=== PATIENT | female | born 1990 | race Caucasian/White ===

== ENCOUNTER 2017-02-23 19:33 | Emergency (ER) | payer MEDICAID, OTHER ==
[2017-02-23 19:52] VITALS: BP 125/92
--- NOTE | 2017-02-23 20:42 | EDM.PDOC ---
ED HPI GENERAL MEDICAL PROBLEM - General Chief Complaint: Back Pain or Injury Stated Complaint: BACK PAIN Time Seen by Provider: 02/23/17 20:04 Source of Information: Reports: Patient, RN Notes Reviewed History Limitations: Reports: No Limitations - History of Present Illness INITIAL COMMENTS - FREE TEXT/NARRATIVE: The patient states that she is 12 weeks . She states that she developed low back pain night before last (02/21/2017), then dysuria and urinary urgency last night. She developed nausea and emesis around 15:00 this afternoon. The patient denies fever and chills. No recent vaginal bleeding or spotting. She states that she called the office of her Computer Assembler , Dr. Gaming, yesterday, and states that she was told to see what happens. No prescriptions were ordered. The patient states that she has had similar symptoms in the past when she had UTIs. The patient is Ab1. Her LMP was 11/28/2016 (12 weeks 4 days by dates). The patient does not have a PCP. Lower Back Pain Score (Numeric/FACES): 7 - Related Data Allergies Allergy/AdvReac Type Severity Reaction Status Date / Time amoxicillin trihydrate Allergy Hives Verified 04/28/15 09:57 FINISH CARPENTER [From Augmentin] ciprofloxacin [From Cipro] Allergy Abdominal Verified 04/28/15 09:57 FINISH CARPENTER Pain ciprofloxacin HCl Allergy Abdominal Verified 04/28/15 09:57 FINISH CARPENTER [From Cipro] Pain doxycycline Allergy Rash Verified 04/28/15 09:57 FINISH CARPENTER potassium clavulanate Allergy Hives Verified 04/28/15 09:57 FINISH CARPENTER [From Augmentin] Home Meds: Home Meds Levonorgestrel [Mirena] 1 each IY DAILY 04/28/15 [History] Past Medical History Gastrointestinal History: Reports: Inflammatory Bowel Disease (Crohn disease) 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: : 3 Para: 1 - Past Surgical History HEENT Surgical History: Reports: Adenoidectomy, Tonsillectomy GI Surgical History: Reports: Colonoscopy, EGD Female Surgical History: Reports: Section (x 1), D&C (x 1) Social & Family History - Family History Family Medical History: Noncontributory - Tobacco Use Smoking Status *Q: Former Smoker Years of Tobacco use: 4 Packs/Tins Daily: 0.5 Month Tobacco Last Used: Quit December 2016 - Caffeine Use Caffeine Use: Reports: Coffee - Alcohol Use Alcohol Use History: No Days Per Week of Alcohol Use: 0 - Recreational Drug Use Recreational Drug Use: No - Living Situation & Occupation Living situation: Reports: Single, with Significant Other, with Family (daughter ) 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) ED ROS GENERAL - Review of Systems Review Of Systems: See Below Constitutional: Reports: No Symptoms HEENT: Reports: No Symptoms Respiratory: Reports: No Symptoms Cardiovascular: Reports: No Symptoms Endocrine: Reports: No Symptoms GI/Abdominal: Reports: No Symptoms : Reports: No Symptoms Musculoskeletal: Reports: No Symptoms Skin: Reports: No Symptoms Neurological: Reports: No Symptoms Psychiatric: Reports: No Symptoms Hematologic/Lymphatic: Reports: No Symptoms Immunologic: Reports: No Symptoms ED EXAM, GENERAL - Physical Exam Exam: See Below Exam Limited By: No Limitations General Appearance: Alert, WD/WN, No Apparent Distress Eye Exam: Bilateral Eye: Normal Inspection Ears: Normal External Exam, Hearing Grossly Normal Nose: Normal Inspection, No Blood Throat/Mouth: Normal Inspection, Normal Lips, Normal Voice, No Airway Compromise Head: Atraumatic, Normocephalic Neck: Normal Inspection, Full Range of Motion Respiratory/Chest: No Respiratory Distress, Lungs Clear, Normal Breath Sounds, No Accessory Muscle Use Cardiovascular: Normal Peripheral Pulses, Regular Rate, Rhythm, No Gallop, No JVD, No Murmur, No Rub Peripheral Pulses: 4+: Radial (L), Radial (R) GI/Abdominal: Normal Bowel Sounds, Soft, No Organomegaly, No Distention, No Abnormal Bruit, No Mass, Tender (Suprapubic region only. Nontender elsewhere.) (Female) Exam: Deferred Rectal (Female) Exam: Deferred Back Exam: Normal Inspection, Full Range of Motion, CVA Tenderness (L), CVA Tenderness (R), Vertebral Tenderness (over the sacrum (?)) Extremities: Normal Inspection, Normal Range of Motion, No Pedal Edema, Normal Capillary Refill Neurological: Alert, Oriented, Normal Cognition, No Motor/Sensory Deficits Psychiatric: Normal Affect Skin Exam: Warm, Dry, Intact, Normal Color, No Rash Lymphatic: No Adenopathy Course - Vital Signs Last Recorded V/S: Last Vital Signs Temp 36.6 C 02/23/17 19:42 Pulse 94 02/23/17 19:42 Resp 16 02/23/17 19:42 BP 125/92 H 02/23/17 19:42 Pulse Ox 100 02/23/17 19:42 - Orders/Labs/Meds Orders: Active Orders 24 hr Category Date Time Status CULTURE URINE [RM] Stat Lab 02/23/17 21:26 Uncollected Labs: Laboratory Tests 02/23/17 Range/Units 20:05 Urine Color Yellow (Yellow) Urine Appearance Slt cloudy H (Clear) Urine pH 7.0 (5.0-8.0) Ur Specific Carmen 1.020 (1.005-1.030) Urine Protein Negative (Negative) Urine Glucose (UA) 1+ H (Negative) Urine Ketones Negative (Negative) Urine Occult Blood Trace-intact H (Negative) Urine Nitrite Negative (Negative) Urine Bilirubin Negative (Negative) Urine Urobilinogen 0.2 (0.2-1.0) Ur Leukocyte Esterase Trace H (Negative) Urine RBC 5-10 H (0-5) /hpf Urine WBC 5-10 H (0-5) /hpf Ur Epithelial Cells 0-5 (0-5) /hpf Amorphous Sediment Few H (NOT SEEN) /hpf Urine Bacteria Few (FEW) /hpf Urine Mucus Few (FEW) /hpf - Re-Assessments/Exams Free Text/Narrative Re-Assessment/Exam: 02/23/17 21:31 The patient's urinalysis is nitrate negative, leukocyte esterase negative, 5-10 RBCs, 5-10 WBCs, and few bacteria. 0-5 epithelial cells. This urinalysis is not consistent with a urinary tract infection, however, asymptomatic bacteriuria in is recommended to be treated. The patient states that she is allergic to Augmentin and doxycycline. Nitrofurantoin is not recommended for the first trimester, and Bactrim is not recommended for first trimester and at term. Fosfomycin is recommended as a 3 g single oral dose, provided the patient does not have pyelonephritis, which is not suspected in this case. Unfortunately, fosfomycin is not carried at this facility, therefore I am going to e-prescribe a dose that the patient can take in the morning. In the meantime, I have ordered a urine culture, and will request that the patient follow-up with someone from Dr. Gaming's office this coming Tuesday, , to check on the urine culture results. I will start the patient on Pyridium, as this is category B. 02/23/17 21:46 Neither fosfomycin or Monurol appear to be in our computer, therefore I cannot e -prescribe it. I have hand-written a prescription for a single 3 g dose. Departure - Departure Time of Disposition: 21:42 Disposition: Home, Self-Care 01 Condition: Good Clinical Impression: Dysuria - Discharge Information Referrals: Stephanie Gaming MD [Primary Care Provider] - Forms: ED Department Discharge Additional Instructions: You were seen in the emergency room for burning urination, the need to urinate frequency, low back pain, nausea, and vomiting. Your urinalysis does not look too bad, and does not clearly indicate that you have a urinary tract infection, however, your urinalysis is not entirely normal , either, therefore you are being treated as if you have a urinary tract infection. Take the single dose of the antibiotic fosfomycin as soon as you fill the prescription tomorrow morning, 02/24/2017. Stay adequately hydrated. Take [id number] Tylenol as needed for discomfort. If your symptoms persist, you may also take [id number] "Azo". Note that you should take no more than a total of 6 doses, and that you were given 1 dose in the ER. Azo will turn your urine orange - this is normal. A sample of your urine was sent for culture. We recommend you follow-up with the office of Dr. Gaming this coming Tuesday afternoon, 02/25/2017, to check on the urine culture results. If the culture grows any bacteria that is resistant to fosfomycin, you will need to be treated with a different antibiotic, even if you have no symptoms. If any other problems, please do not hesitate to return to the ER. - My Orders Last 24 Hours: My Active Orders 02/23/17 21:26 CULTURE URINE [RM] Stat - Assessment/Plan Last 24 Hours: My Active Orders 02/23/17 21:26 CULTURE URINE [RM] Stat
[2017-02-23] MEDS ORDERED: Phenazopyridine 95 MG Tab PO STA (21:50)
== END 2017-02-23 22:10 | disposition home or self-care (01) ==
LOC: JD.ED 19:33
DX: O99.89 Other specified diseases and conditions complicating pregnancy, childbirth and the puerperium (principal); R30.0 Dysuria; Z98.890 Other specified postprocedural states; Z87.891 Personal history of nicotine dependence; Z79.899 Other long term (current) drug therapy; Z88.1 Allergy status to other antibiotic agents; Z3A.12 12 weeks gestation of pregnancy
CPT/HCPCS: 81001; 87086; 99283; A9270

== ENCOUNTER 2017-08-19 05:08 | Inpatient (IN) | payer OTHER ==
[~2017-08-19 05:08] MED LIST: Citric Acid/Sodium Citrate Solution 30 ML Cup PO ONE; Lactated Ringers 1,000 ML IV SCH; Metoclopramide 10 MG/2 ML SDV IVPUSH ONE; Sodium Chloride 0.9% 10 ML Syringe FLUSH PRN
[2017-08-19] MEDS ORDERED: Citric Acid/Sodium Citrate Solution 30 ML Cup PO ONE (06:00)
[2017-08-19] MEDS ORDERED: Metoclopramide 10 MG/2 ML SDV IVPUSH ONE (06:00)
[2017-08-19] MEDS ORDERED: Lactated Ringers 1,000 ML IV SCH (06:00)
[2017-08-19] MEDS ORDERED: Ketorolac 30 MG/ML SDV ONE (07:13)
[2017-08-19] MEDS ORDERED: Morphine PF 10 MG/10 ML SDV ONE (07:13)
[2017-08-19] MEDS ORDERED: Ondansetron 4 MG/2 ML SDV ONE (07:13)
[2017-08-19] MEDS ORDERED: Lactated Ringers 2,000 ML ONE (07:13)
[2017-08-19] MEDS ORDERED: ceFAZolin 1 GM Vial ONE (07:13)
[2017-08-19] MEDS ORDERED: Oxytocin 10 Units/1 ML SDV ONE (07:13)
[2017-08-19] MEDS ORDERED: Sodium Chloride 0.9% 0 ML ONE (07:15)
[2017-08-19] MEDS ORDERED: Sodium Chloride 0.9% 100 ML ONE (07:15)
[2017-08-19] MEDS ORDERED: ePHEDrine 50 MG/ML SDV ONE (07:17)
[2017-08-19] MEDS ORDERED: Phenylephrine 1% 10 MG/ML SDV ONE (07:17)
[2017-08-19] MEDS ORDERED: Bupivacaine 0.5% 30 ML SDV ONE (07:27)
--- NOTE | 2017-08-19 07:37 | PCM.PREANE ---
Preanesthetic Assessment - Anesthesia/Transfusion/Family Hx Anesthesia History: Prior Anesthesia Without Reaction Family History of Anesthesia Reaction: No Transfusion History: No Prior Transfusion(s) - Review of Systems General: No Symptoms Pulmonary: No Symptoms Cardiovascular: No Symptoms Gastrointestinal: No Symptoms, Other (Chrons) Neurological: No Symptoms Other: Reports: None - Physical Assessment NPO Status Date: 08/18/17 NPO Status Time: 22:00 Pulse: 96 O2 Sat by Pulse Oximetry: 97 Respiratory Rate: 15 Blood Pressure: 133/93 Temperature: 36.2 C Vital Signs: Last Vital Signs Temp 36.2 C 08/19/17 05:33 Pulse 96 08/19/17 05:33 Resp 15 08/19/17 05:33 BP 133/93 H 08/19/17 05:33 Pulse Ox 97 08/19/17 05:33 Height: 1.55 m Weight: 70.216 kg ASA Class: 2 Mental Status: Alert & Oriented x3 Airway Class: Mallampati = 2 Dentition: Reports: Dentures Thyro-Mental Finger Breadths: 3 Mouth Opening Finger Breadths: 3 ROM/Head Extension: Full Lungs: Clear to Auscultation, Normal Respiratory Effort Cardiovascular: Regular Rate, Regular Rhythm - Lab Values: Laboratory Last Values WBC 15.13 K/mm3 (3.98-10.04) H 08/19/17 05:35 RBC 3.67 M/mm3 (3.98-5.22) L 08/19/17 05:35 Hgb 11.0 gm/L (11.2-15.7) L 08/19/17 05:35 Hct 33.4 % (34.1-44.9) L 08/19/17 05:35 MCV 91.0 fl (79.4-94.8) 08/19/17 05:35 MCH 30.0 pg (25.6-32.2) 08/19/17 05:35 MCHC 32.9 g/dl (32.2-35.5) 08/19/17 05:35 RDW Std Deviation 45.4 fL (36.4-46.3) 08/19/17 05:35 Plt Count 292 K/mm3 (182-369) 08/19/17 05:35 MPV 12.5 fl (9.4-12.3) H 08/19/17 05:35 Blood Type A POSITIVE 08/19/17 05:35 Gel Antibody Screen Negative 08/19/17 05:35 - Allergies Allergies/Adverse Reactions: Allergies Allergy/AdvReac Type Severity Reaction Status Date / Time amoxicillin trihydrate Allergy Hives Verified 08/19/17 06:12 [From Augmentin] ciprofloxacin [From Cipro] Allergy Abdominal Verified 08/19/17 06:12 Pain doxycycline Allergy Rash Verified 08/19/17 06:12 - Acknowledgements Anesthesia Type Planned: Spinal Pt an Appropriate Candidate for the Planned Anesthesia: Yes Alternatives and Risks of Anesthesia Discussed w Pt/Guardian: Yes Pt/Guardian Understands and Agrees with Anesthesia Plan: Yes Additional Comments: Halla does not tolerated PO NSAIDS. 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: Other OB/BYN History: 07/2014 - Past Surgical History HEENT Surgical History: Reports: Adenoidectomy, Tonsillectomy GI Surgical History: Reports: Colonoscopy, EGD Other GI Surgeries/Procedures: Colonoscopy 2007 Female Surgical History: Reports: Section, D&C Other Female Surgeries/Procedures: 2014, D&C 2013 - SUBSTANCE USE Smoking Status *Q: Current Every Day Smoker Tobacco Use Within Last Twelve Months: Cigarettes Second Hand Smoke Exposure: Yes Days Per Week of Alcohol Use: 0 Recreational Drug Use History: No - HOME MEDS Home Medications: Home Meds PNV95/Ferrous Fumarate/FA [ Tablet] 1 tab PO DAILY 08/19/17 [History] - CURRENT (IN HOUSE) MEDS Current Meds: Current Medications Oxytocin 20 unit/ Lactated (Ringer's) 1,002 mls @ 500 mls/hr IV ASDIRECTED ARNOLD Lactated Ringer's (Ringers, Lactated) 1,000 mls @ 125 mls/hr IV ASDIRECTED ARNOLD Last Admin: 08/19/17 06:36 Dose: 125 mls/hr Sodium Chloride (Saline Flush) 10 ml FLUSH ASDIRECTED PRN PRN Reason: Keep Vein Open Discontinued Medications Cefazolin Sodium (Ancef) Confirm Administered Dose 2 gm .ROUTE .STK-MED ONE Stop: 08/19/17 07:14 Citric Acid/Sodium Citrate (Bicitra Solution) 30 ml PO ONETIME ONE Stop: 08/19/17 02:08 Last Admin: 08/19/17 06:37 Dose: 30 ml Citric Acid/Sodium Citrate (Bicitra Solution) 30 ml PO ONETIME ONE Stop: 08/19/17 06:01 Ephedrine Sulfate (Ephedrine Sulfate) Confirm Administered Dose 50 mg .ROUTE .ST-MED ONE Stop: 08/19/17 07:18 Lactated Ringer's (Ringers, Lactated) 1,000 mls @ 125 mls/hr IV ASDIRECTED ARNOLD Lactated Ringer's (Ringers, Lactated) Confirm Administered Dose 2,000 mls @ as directed .ROUTE .ST-MED ONE Stop: 08/19/17 07:14 Sodium Chloride (Normal Saline) Confirm Administered Dose 100 mls @ as directed .ROUTE .ST-MED ONE Stop: 08/19/17 07:16 Sodium Chloride (Normal Saline) Confirm Administered Dose 200 mls @ as directed .ROUTE .ST-MED ONE Stop: 08/19/17 07:16 Ketorolac Tromethamine (Toradol) Confirm Administered Dose 30 mg .ROUTE .ST- MED ONE Stop: 08/19/17 07:14 Metoclopramide HCl (Reglan) 10 mg IVPUSH ONETIME ONE Stop: 08/19/17 02:08 Last Admin: 08/19/17 06:39 Dose: 10 mg Metoclopramide HCl (Reglan) 10 mg IVPUSH ONETIME ONE Stop: 08/19/17 06:01 Morphine Sulfate (Duramorph Pf) Confirm Administered Dose 10 mg .ROUTE .ST-MED ONE Stop: 08/19/17 07:14 Ondansetron HCl (Zofran) Confirm Administered Dose 4 mg .ROUTE .ST-MED ONE Stop: 08/19/17 07:14 Oxytocin (Pitocin) Confirm Administered Dose 10 unit .ROUTE .ST-MED ONE Stop: 08/19/17 07:14 Phenylephrine HCl (Royce-Synephrine) Confirm Administered Dose 10 mg .ROUTE .STK- MED ONE Stop: 08/19/17 07:18
[2017-08-19] MEDS ORDERED: Midazolam 1 MG/ML 2 ML SDV ONE ×2 (08:26→08:35)
[2017-08-19] MEDS ORDERED: Propofol 200 MG/20 ML SDV ONE (08:28)
[2017-08-19] MEDS ORDERED: diphenhydrAMINE 50 MG/ML SDV IVPUSH PRN ×2 (08:37→09:56)
[2017-08-19] MEDS ORDERED: ePHEDrine 50 MG/ML SDV IVPUSH PRN ×2 (08:37→09:56)
[2017-08-19] MEDS ORDERED: Meperidine PF 50 MG/ML Syringe IVPUSH PRN (08:37)
--- NOTE | 2017-08-19 08:51 | PCM.POSTAN ---
POST ANESTHESIA ASSESSMENT - MENTAL STATUS Mental Status: Alert, Oriented - VITAL SIGNS Pulse Rate: 77 SaO2: 99 Resp Rate: 11 Blood Pressure: 123/84 Temperature: 36.7 C - RESPIRATORY Respiratory Status: Respiratory Rate WNL, Airway Patent, O2 Saturation Stable, Supplemental Oxygen - CARDIOVASCULAR CV Status: Pulse Rate WNL, Blood Pressure Stable - GASTROINTESTINAL GI Status: No Symptoms - PAIN Pain Score: 0 - POST OP HYDRATION Hydration Status: Adequate & Stable
--- NOTE | 2017-08-19 08:57 | PCM.OPNOTE ---
- General Post-Op/Procedure Note Date of Surgery/Procedure: 08/19/17 Operative Procedure(s): repeat Findings: Viable female, weight 6#5oz, 9/9 APGARS, normal uterus tubes and ovaries Pre Op Diagnosis: prior , desires repeat Post-Op Diagnosis: Same Anesthesia Technique: Spinal Primary Surgeon: Stephanie Gaming Clinical Product Manager: Andriy Nagy Reason Clinical Product Manager Was Necessary: retraction, prior surgery, Fluid Replacement, Intraop: 2,500 Output, Urine Amount: 200 EBL in mLs: 800 Complications: None Condition: Good Free Text/Narrative:: The patient was taken to the operating room where epidural anesthesia was dosed to surgical levels without difficulty. The patient was prepped and draped in the usual sterile fashion in the dorsal supine position with a leftward tilt. A Pfannenstiel skin incision was made with the scalpel and carried through to the underlying layer of fascia. The fascia was incised in the midline and extended laterally using Nascimento scissors. Christi clamps were used to elevate the superior aspect of the fascial incision, which was elevated, and the underlying rectus muscles were dissected off bluntly and using Nascimento scissors. Attention was then turned to the inferior aspect of the fascial incision, which in similar fashion was grasped with Christi clamps, elevated, and the underlying rectus muscles were dissected off bluntly and using the nascimento. The rectus muscles were dissected in the midline. The peritoneum was entered bluntly; this incision was extended superiorly and inferiorly with good visualization of the bladder. The bladder blade was inserted. The vesicouterine peritoneum was identified and entered sharply using Metzenbaum scissors. This incision was extended laterally and the bladder flap was created digitally. The bladder blade was reinserted. The lower uterine segment was incised in a transverse fashion using the scalpel and with digital traction. Clear fluid was noted. The was subsequently delivered by flexing the head to the incision. Body and shoulders followed without difficulty. The cord was clamped and cut. The infant was subsequently handed to the awaiting flue blower whose presence had been requested.. The placenta was delivered spontaneously intact with a three-vessel cord noted. The uterus was exteriorized and cleared of all clots and debris. The uterine incision was repaired in 2 layers using 0 monocryl. Hemostasis was visualized. Hemostasis was visualized bilaterally. The uterus was returned to the abdomen. The uterine incision was reexamined and it was noted to be hemostatic. The pelvis was copiously irrigated. The fascia was closed with 1 PDS suture, and the skin was closed with 3-0 monocryl. Sponge, lap, and instrument counts were correct x2. The patient was stable at the completion of the procedure and was subsequently transferred to the recovery room in stable condition.
[2017-08-19] MEDS ORDERED: Docusate Sodium 100 MG Cap PO PRN (09:56)
[2017-08-19] MEDS ORDERED: Lanolin 100% Cream 7 GM Tube TOP PRN (09:56)
[2017-08-19] MEDS ORDERED: Acetaminophen/HYDROcodone 325-5 MG Tab PO PRN (09:56)
[2017-08-19] MEDS ORDERED: Naloxone 0.4 MG/ML SDV IVPUSH PRN (09:56)
[2017-08-19] MEDS ORDERED: Ibuprofen 600 MG Tab PO PRN (09:56)
[2017-08-19] MEDS ORDERED: Dextrose 5%-Lactated Ringers 1,000 ML IV SCH (09:56)
[2017-08-19] MEDS ORDERED: Labetalol 100 MG Tab PO SCH (12:00)
[2017-08-19] MEDS: Labetalol 100 MG Tab PO SCH ×3 (12:04→22:04)
[2017-08-19] MEDS ORDERED: LORazepam 0.5 MG Tab PO PRN (13:21)
[2017-08-19] MEDS: Acetaminophen/oxyCODONE 325-5 MG Tab PO PRN ×3 (14:06→22:06)
[2017-08-19] MEDS ORDERED: Ondansetron 4 MG/2 ML SDV IVPUSH PRN (16:44)
[2017-08-20] MEDS: Acetaminophen/oxyCODONE 325-5 MG Tab PO PRN ×4 (02:03→14:48)
[2017-08-20] MEDS: Labetalol 100 MG Tab PO SCH ×2 (10:05→16:03)
[2017-08-20 10:07] VITALS: BP 126/86
--- NOTE | 2017-08-20 10:43 | PCM.DCSUM1 ---
Discharge Summary - Hospital Course Free Text/Narrative:: Patient was started on labetalol 100 mg by mouth 3 times a day because of blood pressure elevation. Doing well on that medication dispense 90 refill 4 [facility] Post-Op/Procedure Note Patient Name: MP RESTREPO Date of : 89 Patient Status: Inpatient Attending Provider: Stephanie Gaming Date: 08/19/17 08:53 Initialization Date: 08/19/17 08:53 - General Post-Op/Procedure Note Date of Surgery/Procedure: 08/19/17 Operative Procedure(s): repeat Findings: Viable female, weight 6#5oz, 9/9 APGARS, normal uterus tubes and ovaries Pre Op Diagnosis: prior , desires repeat Post-Op Diagnosis: Same Anesthesia Technique: Spinal Primary Surgeon: Stephanie Gaming Lathe Tender: Andriy Nagy Reason Lathe Tender Was Necessary: retraction, prior surgery, Fluid Replacement, Intraop: 2,500 Output, Urine Amount: 200 EBL in mLs: 800 Complications: None Condition: Good Free Text/Narrative:: The patient was taken to the operating room where epidural anesthesia was dosed to surgical levels without difficulty. The patient was prepped and draped in the usual sterile fashion in the dorsal supine position with a leftward tilt. A Pfannenstiel skin incision was made with the scalpel and carried through to the underlying layer of fascia. The fascia was incised in the midline and extended laterally using Nascimento scissors. Christi clamps were used to elevate the superior aspect of the fascial incision, which was elevated, and the underlying rectus muscles were dissected off bluntly and using Nascimento scissors. Attention was then turned to the inferior aspect of the fascial incision, which in similar fashion was grasped with Christi clamps, elevated, and the underlying rectus muscles were dissected off bluntly and using the nascimento. The rectus muscles were dissected in the midline. The peritoneum was entered bluntly; this incision was extended superiorly and inferiorly with good visualization of the bladder. The bladder blade was inserted. The vesicouterine peritoneum was identified and entered sharply using Metzenbaum scissors. This incision was extended laterally and the bladder flap was created digitally. The bladder blade was reinserted. The lower uterine segment was incised in a transverse fashion using the scalpel and with digital traction. Clear fluid was noted. The was subsequently delivered by flexing the head to the incision. Body and shoulders followed without difficulty. The cord was clamped and cut. The was subsequently handed to the awaiting incinerator plant supervisor whose presence had been requested.. The placenta was delivered spontaneously intact with a three-vessel cord noted. The uterus was exteriorized and cleared of all clots and debris. The uterine incision was repaired in 2 layers using 0 monocryl. Hemostasis was visualized. Hemostasis was visualized bilaterally. The uterus was returned to the abdomen. The uterine incision was reexamined and it was noted to be hemostatic. The pelvis was copiously irrigated. The fascia was closed with 1 PDS suture, and the skin was closed with 3-0 monocryl. Sponge, lap, and instrument counts were correct x2. The patient was stable at the completion of the procedure and was subsequently transferred to the recovery room in stable condition. HPI Initial Comments: Patient was started on labetalol 100 mg by mouth 3 times a day because of blood pressure elevation. Doing well on that medication dispense 90 refill 4 [facility] Post-Op/Procedure Note Patient Name: MP RESTREPO Date of : [birth year] Patient Status: Inpatient Attending Provider: Stephanie Gaming Date: 08/19/17 08:53 Initialization Date: 08/19/17 08:53 - General Post-Op/Procedure Note Date of Surgery/Procedure: 08/19/17 Operative Procedure(s): repeat Findings: Viable female, weight 6#5oz, 9/9 APGARS, normal uterus tubes and ovaries Pre Op Diagnosis: prior , desires repeat Post-Op Diagnosis: Same Anesthesia Technique: Spinal Primary Surgeon: Stephanie Gaming Lathe Tender: Andriy Nagy Reason Lathe Tender Was Necessary: retraction, prior surgery, Fluid Replacement, Intraop: 2,500 Output, Urine Amount: 200 EBL in mLs: 800 Complications: None Condition: Good Free Text/Narrative:: The patient was taken to the operating room where epidural anesthesia was dosed to surgical levels without difficulty. The patient was prepped and draped in the usual sterile fashion in the dorsal supine position with a leftward tilt. A Pfannenstiel skin incision was made with the scalpel and carried through to the underlying layer of fascia. The fascia was incised in the midline and extended laterally using Nascimento scissors. Christi clamps were used to elevate the superior aspect of the fascial incision, which was elevated, and the underlying rectus muscles were dissected off bluntly and using Nascimento scissors. Attention was then turned to the inferior aspect of the fascial incision, which in similar fashion was grasped with Christi clamps, elevated, and the underlying rectus muscles were dissected off bluntly and using the nascimento. The rectus muscles were dissected in the midline. The peritoneum was entered bluntly; this incision was extended superiorly and inferiorly with good visualization of the bladder. The bladder blade was inserted. The vesicouterine peritoneum was identified and entered sharply using Metzenbaum scissors. This incision was extended laterally and the bladder flap was created digitally. The bladder blade was reinserted. The lower uterine segment was incised in a transverse fashion using the scalpel and with digital traction. Clear fluid was noted. The was subsequently delivered by flexing the head to the incision. Body and shoulders followed without difficulty. The cord was clamped and cut. The was subsequently handed to the awaiting incinerator plant supervisor whose presence had been requested.. The placenta was delivered spontaneously intact with a three-vessel cord noted. The uterus was exteriorized and cleared of all clots and debris. The uterine incision was repaired in 2 layers using 0 monocryl. Hemostasis was visualized. Hemostasis was visualized bilaterally. The uterus was returned to the abdomen. The uterine incision was reexamined and it was noted to be hemostatic. The pelvis was copiously irrigated. The fascia was closed with 1 PDS suture, and the skin was closed with 3-0 monocryl. Sponge, lap, and instrument counts were correct x2. The patient was stable at the completion of the procedure and was subsequently transferred to the recovery room in stable condition. Brief History: Patient was started on labetalol 100 mg by mouth 3 times a day because of blood pressure elevation. Doing well on that medication dispense 90 refill 4. [facility] . Post-Op/Procedure Note. [facility]: [id number]. Date of : [birth year]Patient Status: Inpatient. Attending Provider: Stephanie GamingAccount Number: [id number]. Date: 08/19/17 08:53Initialization Date: 08/19/17 08:53. - General Post-Op/Procedure Note. Date of Surgery/Procedure: 08/19/17. Operative Procedure(s): repeat . Findings: Viable female, weight 6#5oz, 9/9 APGARS, normal uterus tubes and ovaries. Pre Op Diagnosis: prior , desires repeat. Post-Op Diagnosis: Same. Anesthesia Technique : Spinal. Primary Surgeon: Stephanie Gaming. Lathe Tender: Andriy Nagy. Reason Lathe Tender Was Necessary: retraction, prior surgery,. Fluid Replacement, Intraop: 2,500. Output, Urine Amount: 200. EBL in mLs: 800. Complications: None. Condition: Good. Free Text/Narrative:: The patient was taken to the operating room where epidural anesthesia was dosed to surgical levels without difficulty. The patient was prepped and draped in the usual sterile fashion in the dorsal supine position with a leftward tilt. A Pfannenstiel skin incision was made with the scalpel and carried through to the underlying layer of fascia. The fascia was incised in the midline and extended laterally using Nascimento scissors. Christi clamps were used to elevate the superior aspect of the fascial incision, which was elevated, and the underlying rectus muscles were dissected off bluntly and using Nascimento scissors. Attention was then turned to the inferior aspect of the fascial incision, which in similar fashion was grasped with Christi clamps, elevated, and the underlying rectus muscles were dissected off bluntly and using the nascimento. The rectus muscles were dissected in the midline. The peritoneum was entered bluntly; this incision was extended superiorly and inferiorly with good visualization of the bladder. The bladder blade was inserted. The vesicouterine peritoneum was identified and entered sharply using Metzenbaum scissors. This incision was extended laterally and the bladder flap was created digitally. The bladder blade was reinserted. The lower uterine segment was incised in a transverse fashion using the scalpel and with digital traction. Clear fluid was noted. The was subsequently delivered by flexing the head to the incision. Body and shoulders followed without difficulty. The cord was clamped and cut. The was subsequently handed to the awaiting incinerator plant supervisor whose presence had been requested.. The placenta was delivered spontaneously intact with a three-vessel cord noted. The uterus was exteriorized and cleared of all clots and debris. The uterine incision was repaired in 2 layers using 0 monocryl. Hemostasis was visualized. Hemostasis was visualized bilaterally. The uterus was returned to the abdomen. The uterine incision was reexamined and it was noted to be hemostatic. The pelvis was copiously irrigated. The fascia was closed with 1 PDS suture, and the skin was closed with 3-0 monocryl. Sponge, lap, and instrument counts were correct x2. The patient was stable at the completion of the procedure and was subsequently transferred to the recovery room in stable condition. - Discharge Data Discharge Date: 08/20/17 Discharge Disposition: Home, Self-Care 01 Condition: Good - Discharge Diagnosis/Problem(s) (1) 37 weeks gestation of SNOMED Code(s): 77150339 ICD Code: Z3A.37 - 37 WEEKS GESTATION OF Status: Acute Current Visit: Yes (2) Preeclampsia SNOMED Code(s): 126434618 ICD Code: O14.90 - UNSPECIFIED PRE-ECLAMPSIA, UNSPECIFIED TRIMESTER Status : Acute Current Visit: Yes Qualifiers: Trimester: third trimester Qualified Code(s): O14.93 - Unspecified pre- eclampsia, third trimester (3) delivery, delivered, current hospitalization SNOMED Code(s): 674218945 ICD Code: O82 - ENCOUNTER FOR DELIVERY WITHOUT INDICATION Status: Acute Current Visit: Yes - Patient Summary/Data Operative Procedure(s) Performed: repeat Complications: Blood pressure elevation requiring labetalol treatment 100 mg by mouth 3 times a day Consults: None Hospital Course: Uneventful except for blood pressure elevation as noted above. - Patient Instructions Diet: Low Sodium Driving: Do Not Drive (2 weeks and partly 48 hours after last Percocet) Showering/Bathing: May Shower, No Tub Bathing/Swimming Notify Provider of: Fever, Increased Pain, Swelling and Redness, Drainage, Nausea and/or Vomiting - Discharge Plan Prescriptions/Med Rec: Acetaminophen/oxyCODONE [Percocet 325-5 MG] 1 tab PO Q6H PRN #20 tablet PRN Reason: Pain Labetalol [Normodyne] 100 mg PO TID #90 tablet Home Medications: Home Meds PNV95/Ferrous Fumarate/FA [ Tablet] 1 tab PO DAILY 08/19/17 [History] Acetaminophen/oxyCODONE [Percocet 325-5 MG] 1 tab PO Q6H PRN #20 tablet [Rx] Docusate Sodium [Colace] 100 mg PO Q12H PRN cap 08/20/17 [Rx] Ibuprofen [IJD: Ibuprofen] 600 mg PO Q6H PRN tablet 08/20/17 [Rx] Labetalol [Normodyne] 100 mg PO TID #90 tablet 08/20/17 [Rx] Referrals: Stephanie Gaming MD [Primary Care Provider] - ([address] Gaming request per patient) - Discharge Summary/Plan Comment DC Time >30 min.: No - Patient Data Vitals - Most Recent: Last Vital Signs Temp 97.5 F 08/20/17 04:00 Pulse 81 08/20/17 10:05 Resp 16 08/20/17 07:00 BP 126/86 08/20/17 10:05 Pulse Ox 99 08/20/17 07:00 Weight - Most Recent: 154 lb 12.8 oz I&O - Last 24 hours: Intake & Output 08/19/17 08/20/17 08/20/17 22:59 06:59 14:59 Intake Total 1120 1200 Output Total 950 500 Balance 170 700 Lab Results - Last 24 hrs: Laboratory Results - last 24 hr 08/20/17 08/20/17 Range/Units 06:42 06:42 WBC 19.43 H (3.98-10.04) K/mm3 RBC 3.26 L (3.98-5.22) M/mm3 Hgb 9.6 L (11.2-15.7) gm/L Hct 30.0 L (34.1-44.9) % MCV 92.0 (79.4-94.8) fl MCH 29.4 (25.6-32.2) pg MCHC 32.0 L (32.2-35.5) g/dl RDW Std Deviation 45.6 (36.4-46.3) fL Plt Count 276 (182-369) K/mm3 MPV 12.6 H (9.4-12.3) fl Neut % (Auto) 64.1 (34.0-71.1) % Lymph % (Auto) 19.0 L (19.3-51.7) % [place] % (Auto) 15.2 H (4.7-12.5) % Eos % (Auto) 1.0 (0.7-5.8) Baso % (Auto) 0.2 (0.1-1.2) % Neut # (Auto) 12.44 H (1.56-6.13) K/mm3 Lymph # (Auto) 3.70 (1.18-3.74) K/mm3 [place] # (Auto) 2.96 H (0.24-0.36) K/mm3 Eos # (Auto) 0.20 (0.04-0.36) K/mm3 Baso # (Auto) 0.04 (0.01-0.08) K/mm3 Manual Slide Review Normal smear ALT 13 L (14-59) U/L Med Orders - Current: Current Medications Hydrocodone Bitart/Acetaminophen ([place] 325-5 Mg) 2 tab PO Q6H PRN PRN Reason: Pain (moderate 4-6) Last Admin: 08/19/17 10:09 Dose: 2 tab Diphenhydramine HCl (Benadryl) 25 mg IVPUSH Q6H PRN PRN Reason: Itching or Nausea Docusate Sodium (Colace) 100 mg PO Q12H PRN PRN Reason: Constipation Last Admin: 08/19/17 18:05 Dose: 100 mg Emollient Ointment (Lansinoh Hpa) 0 gm TOP ASDIRECTED PRN PRN Reason: Sore Nipples Ephedrine Sulfate (Ephedrine Sulfate) 5 mg IVPUSH SEECOMMENT PRN PRN Reason: Other Ibuprofen (Motrin) 600 mg PO Q6H PRN PRN Reason: mild pain or fever Labetalol HCl (Normodyne) 100 mg PO TID ARNOLD Last Admin: 08/20/17 10:05 Dose: 100 mg Lorazepam (Ativan) 0.5 mg PO Q8H PRN PRN Reason: Anxiety Last Admin: 08/19/17 23:49 Dose: 0.5 mg Naloxone HCl (Narcan) 0.1 mg IVPUSH SEECOMMENT PRN PRN Reason: Respiratory Depression Ondansetron HCl (Zofran) 4 mg IVPUSH Q6H PRN PRN Reason: Nausea Last Admin: 08/19/17 17:13 Dose: 4 mg Oxycodone/Acetaminophen (Percocet 325-5 Mg) 2 tab PO Q4H PRN PRN Reason: Pain Last Admin: 08/20/17 06:30 Dose: 2 tab Discontinued Medications Bupivacaine HCl (Marcaine 0.5%) Confirm Administered Dose 30 ml .ROUTE .[facility]-MED ONE Stop: 08/19/17 07:28 Last Admin: 08/19/17 08:06 Dose: 20 ml Cefazolin Sodium (Ancef) Confirm Administered Dose 2 gm .ROUTE .[facility]-MED ONE Stop: 08/19/17 07:14 Citric Acid/Sodium Citrate (Bicitra Solution) 30 ml PO ONETIME ONE Stop: 08/19/17 02:08 Last Admin: 08/19/17 06:37 Dose: 30 ml Citric Acid/Sodium Citrate (Bicitra Solution) 30 ml PO ONETIME ONE Stop: 08/19/17 06:01 Last Admin: 08/19/17 16:01 Dose: Not Given Diphenhydramine HCl (Benadryl) 25 mg IVPUSH Q6H PRN PRN Reason: Pruritis Ephedrine Sulfate (Ephedrine Sulfate) Confirm Administered Dose 50 mg .ROUTE .ST-MED ONE Stop: 08/19/17 07:18 Ephedrine Sulfate (Ephedrine Sulfate) 5 mg IVPUSH ASDIRECTED PRN PRN Reason: Hypotension Lactated Ringer's (Ringers, Lactated) 1,000 mls @ 125 mls/hr IV ASDIRECTED [facility] Oxytocin 20 unit/ Lactated (Ringer's) 1,002 mls @ 500 mls/hr IV ASDIRECTED [facility] Lactated Ringer's (Ringers, Lactated) 1,000 mls @ 125 mls/hr IV ASDIRECTED [facility] Last Admin: 08/19/17 06:36 Dose: 125 mls/hr Lactated Ringer's (Ringers, Lactated) Confirm Administered Dose 2,000 mls @ as directed .ROUTE .ST-MED ONE Stop: 08/19/17 07:14 Sodium Chloride (Normal Saline) Confirm Administered Dose 100 mls @ as directed .ROUTE .[facility]-MED ONE Stop: 08/19/17 07:16 Sodium Chloride (Normal Saline) Confirm Administered Dose 0 mls @ as directed .ROUTE .STK-MED ONE Stop: 08/19/17 07:16 Dextrose/Lactated Ringer's (Dextrose 5%-Lactated Ringers) 1,000 mls @ 125 mls/ hr IV ASDIRECTED [facility] Stop: 08/19/17 17:55 Last Admin: 08/19/17 10:16 Dose: 125 mls/hr Ketorolac Tromethamine (Toradol) Confirm Administered Dose 30 mg .ROUTE .STK- MED ONE Stop: 08/19/17 07:14 Labetalol HCl (Normodyne) 100 mg PO TID [facility] Labetalol HCl (Normodyne) 100 mg PO TID@1200,1800,2200 [facility] Stop: 08/19/17 22:01 Last Admin: 08/19/17 22:04 Dose: 100 mg Meperidine HCl (Demerol) 12.5 mg IVPUSH ONETIME PRN PRN Reason: Shivering Metoclopramide HCl (Reglan) 10 mg IVPUSH ONETIME ONE Stop: 08/19/17 02:08 Last Admin: 08/19/17 06:39 Dose: 10 mg Metoclopramide HCl (Reglan) 10 mg IVPUSH ONETIME ONE Stop: 08/19/17 06:01 Last Admin: 08/19/17 16:01 Dose: Not Given Midazolam HCl (Versed 1 Mg/Ml) Confirm Administered Dose 2 mg .ROUTE .STK-MED ONE Stop: 08/19/17 08:27 Midazolam HCl (Versed 1 Mg/Ml) Confirm Administered Dose 2 mg .ROUTE .ST-MED ONE Stop: 08/19/17 08:36 Morphine Sulfate (Duramorph Pf) Confirm Administered Dose 10 mg .ROUTE .ST-MED ONE Stop: 08/19/17 07:14 Ondansetron HCl (Zofran) Confirm Administered Dose 4 mg .ROUTE .STK-MED ONE Stop: 08/19/17 07:14 Oxytocin (Pitocin) Confirm Administered Dose 10 unit .ROUTE .STK-MED ONE Stop: 08/19/17 07:14 Phenylephrine HCl (Royce-Synephrine) Confirm Administered Dose 10 mg .ROUTE .STK- MED ONE Stop: 08/19/17 07:18 Propofol (Diprivan 20 Ml) Confirm Administered Dose 200 mg .ROUTE .STK-MED ONE Stop: 08/19/17 08:29 Sodium Chloride (Saline Flush) 10 ml FLUSH ASDIRECTED PRN PRN Reason: Keep Vein Open *Q Meaningful Use (DIS) - VTE *Q VTE Criteria *Q: - Stroke *Q Stroke Criteria *Q: - AMI *Q AMI Criteria *Q:
--- NOTE | 2017-08-20 17:47 | PCM48HPAN ---
Post Anesthesia Note - EVALUATION WITHIN 48HRS OF ANESTHETIC Vital Signs in Normal Range: Yes Patient Participated in Evaluation: Yes Respiratory Function Stable: Yes Airway Patent: Yes Cardiovascular Function Stable: Yes Hydration Status Stable: Yes Pain Control Satisfactory: Yes Nausea and Vomiting Control Satisfactory: Yes Mental Status Recovered: Yes Pulse Rate: 82 Resp Rate: 16 Temperature: 36.5 C Blood Pressure: 126/86 - COMMENTS/OBSERVATIONS Free Text/Narrative:: No anesthesia complications indicated
== END 2017-08-20 15:35 | disposition home or self-care (01) | DRG 766 ==
LOC: JD.OB 05:08
PROVIDERS: ADMIT Obstetrics & Gynecology; ATTEND Obstetrics & Gynecology
PROC: 10D00Z1 Extraction of Products of Conception, Low, Open Approach (ICD-10-PCS; principal; 2017-08-19)
DX: O14.94 Unspecified pre-eclampsia, complicating childbirth (principal); O99.334 Smoking (tobacco) complicating childbirth; Z3A.37 37 weeks gestation of pregnancy; Z37.0 Single live birth; O34.211 Maternal care for low transverse scar from previous cesarean delivery; N85.8 Other specified noninflammatory disorders of uterus
CPT/HCPCS: 36415; 84460; 85025; 85027; 86850; 86900; 86901; A9270-GY; J0690; J1885; J2250; J2270; J2370; J2405; J2590; J2704; J2765; J7030; J7042; J7120